=== PATIENT | male | born 1945 | race Caucasian/White ===

== ENCOUNTER 2017-01-27 21:00 | Observation (INO) | payer OTHER, MEDICARE ==
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
[~2017-01-27 21:00] MED LIST: ALLEGRA180 PO; AMOXIL875 PO; ATV1 PO; C5; CARDCD300 PO; CARTIA XT300 MG/24 PO; CATPATCH1 TOP; COZAAR100 MG PO; CYANO1000T PO; FISH-EPA1000 MG PO; GLUCPH PO; HARD NAILS PO; KRILL OIL PO; L20 PO; LISINOPRIL40 MG PO; LOP25 PO; LOVENOX SC; MAGOX4 PO; MILK THISTLE PO; NAP500 PO; NEUR100 PO; NORCO1 TAB PO; OMEGA K PO; PCET PO; PRILO PO; VITAMIN B12 OTC PO; Z300 PO; [UNRECOGNIZED DRUG - OTHER] PO; [UNRECOGNIZED DRUG - OTHER] PO; [UNRECOGNIZED DRUG - OTHER] PO
[2017-01-28 00:01] LABS: BASOPHILS 0.7 %; BASOPHILS ABSOLUTE 0.05 10/3/uL (0.0-0.16); EOSINOPHILS ABSOLUTE 0.29 10/3/uL (0.0-0.53); ER CBC TAT 0 Hrs 07 Mins; HEMOGLOBIN 14.8 g/dL (13.6-17.8); IMMATURE GRANULOCYTES 0.3 %; IMMATURE GRANULOCYTES ABSOLUTE 0.02 10/3/uL (0.0-0.11); LYMPHOCYTES 29.7 %; LYMPHOCYTES ABSOLUTE 2.15 10/3/uL (0.67-4.30); MEAN CORPUS HGB CONC 34.9 g/dL (32.0-36.0); MEAN CORPUSCULAR HEMOGLOB 31.5 pg (26.0-34.0); MEAN CORPUSCULAR VOLUME 90.2 fL (80-100); MEAN PLATELET VOLUME 10.4 fL (9.2-13.0); MONOCYTES 11.6 %; MONOCYTES ABSOLUTE 0.84 10/3/uL (0.21-1.20); NEUTROPHILS 53.7 %; NEUTROPHILS ABSOLUTE 3.89 10/3/uL (2.02-8.40); PLATELET COUNT 231 10/3/uL (150-400); RBC DISTRIBUTION WIDTH 13.4 % (12.0-16.0); WHITE BLOOD CELLS 7.2 10/3/uL (4.5-10.5)
[2017-01-28 00:07] LABS: PARTIAL THROMBO TIME 33.5 SEC (22.5-37.2)
[2017-01-28 00:09] LABS: ASCORBIC ACID (UR NOT ORDER) 20 (NEG); BILIRUBIN, URINE NEGATIVE (NEG); ER URINALYSIS TAT 0 Hrs 00 Mins; KETONE, URINE NEGATIVE (NEG); LEUKOCYTE ESTERASE(NOT OR NEG (NEG); NITRITE (URINE) NEG (NEG); WBC (NOT ORDERED) (RFLEX) < 1 (0-5)
[2017-01-28 00:09] LABS: HEMATOCRIT 42.4 % (40.0-51.0); MANUAL DIFF NO %
[2017-01-28 00:21] LABS: PROTIME (NOT ORD) 12.8 SEC (12.0-14.5)
[2017-01-28 00:25] LABS: CHLORIDE, SERUM 103 MMOL/L (96-112); CO2 (CARBON DIOXIDE) 26 MMOL/L (24-34); CREATININE 1.44 MG/DL (0.70-1.30); GFR AFRICAN AMERICAN 57 ML/MIN (>=60); GFR NON AFRICAN AMERICAN 49 ML/MIN (>=60); GLUCOSE, SERUM 147 MG/DL (60-99); POTASSIUM, SERUM 4.1 MMOL/L (3.5-5.3); SODIUM, SERUM 137 MMOL/L (135-148); TROPONIN I <0.02 NG/ML (<0.05)
[2017-01-28 00:26] LABS: BUN (BLOOD UREA NITROGEN) 27 MG/DL (6-23); CALCIUM, SERUM 9.4 MG/DL (8.5-10.4); CHEST PAIN PROFILE TAT 0 Hrs 31 Mins
[2017-01-28] MEDS ORDERED: NORV5 PO (01:12)
[2017-01-28] MEDS ORDERED: COREG25 PO (01:13)
[2017-01-28] MEDS ORDERED: PRINZIDE1 TA1 PO (01:13)
[2017-01-28] MEDS ORDERED: PRILO PO (01:13)
[2017-01-28] MEDS ORDERED: GLUCPH PO (01:14)
[2017-01-28] MEDS ORDERED: HYT2 PO (01:14)
[2017-01-28] MEDS ORDERED: Z300 PO (01:14)
[2017-01-28] MEDS ORDERED: B12250T PO (01:15)
[2017-01-28 06:02] LABS: INTERNATIONAL NORMAL RATI 1.1 UNITS (-); PARTIAL THROMBO TIME 37.1 SEC (22.5-37.2); PROTIME (NOT ORD) 14.3 SEC (12.0-14.5)
[2017-01-28 06:32] LABS: ALBUMIN 3.6 G/DL (3.5-5.0); FREE T4 1.24 NG/DL (0.76-1.46); SGOT(AST) 24 U/L (5-40); SGPT(ALT) 34 U/L (5-65); TOTAL BILIRUBIN 0.4 MG/DL (0-1.2); TOTAL PROTEIN 7.1 G/DL (6.0-8.5); TROPONIN I <0.02 NG/ML (<0.05)
[2017-01-28 06:35] LABS: ALKALINE PHOSPHATASE 74 U/L (45-117); DIRECT BILIRUBIN < 0.1 MG/DL (0.0-0.4); INDIRECT BILIRUBIN(NOT ORDER) 0.3 MG/DL (0.1-0.9)
[2017-01-28] MEDS ORDERED: ELIQUIS 5 MG TAB5 MG PO (16:03)
[2017-01-28] MEDS ORDERED: CARD120 PO (16:07)
== END 2017-01-28 16:36 | disposition home or self-care (01) ==
LOC: ER 21:00 → CDU1 23:59
PROVIDERS: Clinical Nurse Specialist; Emergency Medicine
DX: I48.91 Unspecified atrial fibrillation (principal); I08.1 Rheumatic disorders of both mitral and tricuspid valves; G47.33 Obstructive sleep apnea (adult) (pediatric); E11.9 Type 2 diabetes mellitus without complications; F43.10 Post-traumatic stress disorder, unspecified; K74.60 Unspecified cirrhosis of liver; N18.9 Chronic kidney disease, unspecified; I12.9 Hypertensive chronic kidney disease with stage 1 through stage 4 chronic kidney disease, or unspecified chronic kidney disease; E03.9 Hypothyroidism, unspecified; E78.5 Hyperlipidemia, unspecified; K21.9 Gastro-esophageal reflux disease without esophagitis; M10.9 Gout, unspecified; Z88.5 Allergy status to narcotic agent; Z88.8 Allergy status to other drugs, medicaments and biological substances; Z91.040 Latex allergy status; Z79.899 Other long term (current) drug therapy
CPT/HCPCS: 71010; 80048; 80076; 81001; 82962; 83735; 83880; 84439; 84443; 84484; 85025; 85610; 85730; 92960; 93005; 93312; 93320; 93325; 96374; 96376; 99285; A9270-GY; G0378; Q9957